=== PATIENT | male | born 1955 | race Caucasian/White ===

== ENCOUNTER 2018-09-06 11:25 | Outpatient (CLI) | payer BC | END 2018-09-06 11:26 | disposition home or self-care (01) | LOC: RT.S 11:25 | PROVIDERS: ATTEND Nurse Practitioner Family | DX: M25.512 Pain in left shoulder (principal) | CPT/HCPCS: 93005 ==

== ENCOUNTER 2018-10-17 08:35 | Outpatient (CLI) | payer BC ==
[2018-10-17 10:16] LABS: BASOPHILS # (AUTO) 0.1 10^3/uL (0.0-0.1); BASOPHILS % (AUTO) 1.1 %; EOSINOPHILS # (AUTO) 0.2 10^3/uL (0.0-0.7); EOSINOPHILS % (AUTO) 3.6 %; HGB - HEMOGLOBIN 14.3 g/dL (14.0-18.0); LYMPHOCYTES # (AUTO) 1.5 10^3/uL (1.5-3.5); LYMPHOCYTES % (AUTO) 26.5 %; MEAN CORPUSCULAR HEMOGLOBIN 28.6 pg (27.0-31.0); MEAN CORPUSCULAR HGB CONC 33.4 g/dL (32.0-36.0); MEAN CORPUSCULAR VOLUME 85.7 fL (80.0-94.0); MEAN PLATELET VOLUME 7.7 fL (7.4-11.4); MONOCYTES # (AUTO) 0.7 10^3/uL (0.0-1.0); MONOCYTES % (AUTO) 12.2 %; NEUTROPHILS # (AUTO) 3.2 10^3/uL (1.5-6.6); NEUTROPHILS % (AUTO) 56.6 %; PLT - PLATELET COUNT 290 10^3/uL (130-450); RED BLOOD COUNT 4.98 10^6/uL (4.70-6.10); RED CELL DISTRIBUTION WIDTH 13.8 % (12.0-15.0); WHITE BLOOD COUNT 5.6 x10^3/uL (4.8-10.8)
[2018-10-17 10:29] LABS: ALBUMIN 4.2 g/dL (3.2-5.5); ALBUMIN/GLOBULIN RATIO 1.4 (1.0-2.2); ALKALINE PHOSPHATASE 70 IU/L (42-121); ALT ALANINE AMINOTRANSFERASE 24 IU/L (10-60); AST ASPARTATE AMINOTRANSFERASE 24 IU/L (10-42); BILIRUBIN,TOTAL 0.9 mg/dL (0.2-1.0); BUN - BLOOD UREA NITROGEN 13 mg/dL (6-20); CALCIUM 9.8 mg/dL (8.5-10.3); CARBON DIOXIDE - CO2 31 mmol/L (21-32); CHLORIDE 101 mmol/L (101-111); CHOL/HDL RATIO 3.4 (<5.0); CHOLESTEROL 213 mg/dL; CREATININE 0.8 mg/dL (0.6-1.2); GFR - MDRD 98 (>89); GLUCOSE 101 mg/dL (70-100); HDL CHOLESTEROL 62 mg/dL; LDL CHOLESTEROL,CALCULATED 130 mg/dL; LDL/HDL RATIO 2.1 (<3.6); SODIUM 139 mmol/L (135-145); TOTAL PROTEIN 7.2 g/dL (6.7-8.2); VLDL CHOLESTEROL 21 mg/dL
[2018-10-17 10:38] LABS: HB2 TOTAL 15.4 g/dL; HEMOGLOBIN A1C 0.61 g/dL; HEMOGLOBIN A1C % 5.8 % (4.6-6.2)
== END 2018-10-17 23:59 | disposition home or self-care (01) ==
LOC: LAB.S 08:35
PROVIDERS: ATTEND Nurse Practitioner
DX: Z13.6 Encounter for screening for cardiovascular disorders (principal); Z13.1 Encounter for screening for diabetes mellitus
CPT/HCPCS: 36415; 80053; 80061; 83036; 83721; 85025

== ENCOUNTER 2020-05-03 07:17 | Outpatient (CLI) | payer BC ==
--- NOTE | 2020-05-03 08:47 | MRI Report ---
PROCEDURE: Lumbar Spine W/O INDICATIONS: BACK PAIN, LUMBAR RADICULITIS, NEUROPATHY TECHNIQUE: Noncontrast sagittal T1 spin echo and T2 fast echo, sagittal STIR, axial T1 and T2 fast spin echo thr ough the lumbar spine. In cases with scoliosis, additional coronal T2 fast spin echo may be performe d. COMPARISON: None. FINDINGS: Image quality: Excellent. Alignment and Curvature: Straightening of the usual lumbar lordosis. Otherwise normal alignment. Bone Marrow: Discogenic marrow signal change at the opposing endplates from L3-L4 through L5-S1. No suspicious focal marrow signal abnormality or bone marrow edema. Spinal Cord: Normal position and appearance of the conus. Partially visualized distal cord is unremar kable. Regional Soft Tissues: Prevertebral and paraspinous soft tissues are within normal limits. T12-L1: Normal in appearance. L1-L2: Normal in appearance. L2-L3: Disc desiccation and disc height loss with circumferential disc bulge flattening the ventra l thecal sac but producing no mass effect upon the traversing L3 nerve roots. Foraminal components of the disc bulge contribute to mild bilateral neural foraminal stenosis in conjunction with facet hype rtrophy. Small facet effusions noted. L3-L4: Desiccation and disc height loss with diffuse disc bulge which flattens the ventral thecal s ac but produces no mass effect upon the traversing L3 or nerve roots. Foraminal components of the dis c bulge contribute to trace neural foraminal narrowing. There is facet hypertrophy with small facet e ffusions. L4-L5: Disc desiccation and disc height loss with diffuse disc bulge and a superimposed broad-based posterior disc protrusion. There is an annular fissure in the central and right paracentral zones (s eries 7 image 15 and series 701 image 14). Disc material flattens and indents the ventral thecal sac, abutting but not obviously displacing the descending L5 nerve roots within both subarticular zones. Foraminal components of the disc bulge combine with facet hypertrophy to produce mild bilateral neura l foraminal stenosis. L5-S1: Marked disc desiccation and height loss with near-complete loss of intervertebral disc heigh t. Disc material flattens the ventral thecal sac. Disc material abuts and mildly displaces the descen ding S1 nerve roots within both subarticular zones. Neural foraminal collapse related to disc height loss combines with foraminal components of the disc bulge and facet hypertrophy to produce moderate b ilateral neural foraminal stenosis. 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 Reviewed by: Cali Medrano MD on 05/03/2020 8:46 AM PST Approved by: Cali Medrano MD on 05/03/2020 8:46 AM PST Station ID: [id number]
== END 2020-05-03 07:18 | disposition home or self-care (01) ==
LOC: DI 07:17
PROVIDERS: ATTEND Internal Medicine
DX: M47.816 Spondylosis without myelopathy or radiculopathy, lumbar region (principal); M51.36 Other intervertebral disc degeneration, lumbar region; M48.061 Spinal stenosis, lumbar region without neurogenic claudication; M51.26 Other intervertebral disc displacement, lumbar region; M47.817 Spondylosis without myelopathy or radiculopathy, lumbosacral region; M51.37 Other intervertebral disc degeneration, lumbosacral region; M48.07 Spinal stenosis, lumbosacral region
CPT/HCPCS: 72148